=== PATIENT | male | born 1990 | race Caucasian/White ===

== ENCOUNTER 2017-07-27 23:24 | Emergency (ER) | payer OTHER ==
[~2017-07-27] VITALS: Ht 172.7 cm; Wt 72.6 kg
[2017-07-27 23:30] VITALS: BP 160/97
[2017-07-27] MEDS ORDERED: ONDANSETRON 4 MG TAB.RAPDIS ONE (23:59)
[2017-07-27] MEDS ORDERED: oxyCODONE/APAP (5/325 MG) 1 UDTAB TABLET ONE (23:59)
[2017-07-27] MEDS ORDERED: IBUPROFEN 400 MG TABLET ONE (23:59)
[2017-07-28] MEDS ORDERED: IBUPROFEN 400 MG TABLET PO ONE
[2017-07-28] MEDS ORDERED: oxyCODONE/APAP (5/325 MG) 1 UDTAB TABLET PO ONE
[2017-07-28] MEDS ORDERED: PENICILLIN V POTASSIUM 500 MG TABLET PO ONE ×2
[2017-07-28] MEDS ORDERED: ONDANSETRON 4 MG TAB.RAPDIS SL ONE
== END 2017-07-28 00:07 | disposition home or self-care (01) ==
LOC: ER 23:29
DX: K04.7 Periapical abscess without sinus (principal)
CPT/HCPCS: 99284; A4606; A6403; Q0162; Z7610